=== PATIENT | female | born 1990 | race Caucasian/White ===

== ENCOUNTER 2016-07-22 09:55 | Emergency (ER) | payer OTHER ==
[~2016-07-22] VITALS: Ht 160 cm; Wt 73.8 kg
[~2016-07-22 09:55] MED LIST: CIPRO500 MG PO; FLEXERIL10 MG PO; NAPROSYN500 MG PO; NAPROXEN500 MG PO; SKELAXIN800 MG PO
[2016-07-22] MEDS ORDERED: NAPROSYN500 MG PO (12:01)
[2016-07-22] MEDS ORDERED: FLEXERIL10 MG PO (12:01)
[2016-07-22 12:19] VITALS: BP 138/92
== END 2016-07-22 12:19 | disposition home or self-care (01) ==
LOC: EME 09:55
DX: M62.838 Other muscle spasm (principal)
CPT/HCPCS: 99281; 99283

== ENCOUNTER 2016-09-22 20:12 | Emergency (ER) | payer OTHER ==
[~2016-09-22] VITALS: Ht 160 cm; Wt 71.0 kg
[2016-09-22 21:20] LABS: HEMATOCRIT 41.2 % (36.0-46.0); MCV 82.4 FL (83-99); MEAN PLAT.VOLUME 10.6 uM^3 (9.5-12.4); PLATELET COUNT 269 K/uL (156-360); RBC DIS.WIDTH-CV 11.6 % (11.8-14.6); RBC DIS.WIDTH-SD 34.5 % (39-53); WHITE BLOOD COUNT 15.9 K/uL (4.1-10.2)
[2016-09-22 21:28] LABS: CHLORIDE 104 mEq/L (99-109); POTASSIUM 3.8 mEq/L (3.7-5.4); SODIUM 138 mEq/L (136-147)
[2016-09-22 21:30] LABS: GLUCOSE 106 mg/dL (70-99)
[2016-09-22 21:32] LABS: ANION GAP 11 MEQ/L (2-14); TOTAL BILIRUBIN 0.5 mg/dL (0.0-1.0)
[2016-09-22 21:34] LABS: ALKALINE PHOSPHATASE 76 IU/L (3-129); GFR ESTIMATE (CALCULATED) > 59 mL/min/
[2016-09-22 21:35] LABS: UREA NITROGEN (BUN) 13 mg/dL (9-23)
[2016-09-22 21:44] LABS: QUANTITATIVE HCG < 4.0 MIU/ML
[2016-09-22 22:01] LABS: LIPASE 20 U/L (1.0-51.0)
[2016-09-22 22:52] LABS: ADD MIUA? YES; BILIRUBIN NEGATIVE; BLOOD NEGATIVE; COLOR YELLOW ((YELLOW)); GLUCOSE (STRIP) NEGATIVE; KETONES NEGATIVE; LEUKOCYTES TRACE; NITRITE NEGATIVE; PROTEIN (STRIP) NEGATIVE; SPECIFIC GRAVITY 1.015 (1.000-1.030); UROBILINOGEN 0.2 MG/DL (0.2-1.0)
[2016-09-22] MEDS ORDERED: FLOMAX0.4 MG PO (22:54)
[2016-09-22] MEDS ORDERED: ZOFRAN ODT4 MG PO (22:54)
[2016-09-22] MEDS ORDERED: PERCOCET 5/31 TABLET PO (22:54)
[2016-09-22 22:59] LABS: BACTERIA RARE /HPF; EPITHELIAL CELLS RARE /HPF; MUCUS TRACE /LPF; RED BLOOD CELLS 0-5 /HPF (0-5); UCUL ADDED? NO; WHITE BLOOD CELLS 0-5 /HPF (0-5)
[2016-09-22 23:27] VITALS: BP 120/75
== END 2016-09-22 23:28 | disposition home or self-care (01) ==
LOC: EME 20:12
DX: N20.0 Calculus of kidney (principal); R10.10 Upper abdominal pain, unspecified; R10.31 Right lower quadrant pain; R11.2 Nausea with vomiting, unspecified; K57.30 Diverticulosis of large intestine without perforation or abscess without bleeding
CPT/HCPCS: 74176; 80053; 81003; 83690; 84702; 85027; 99281; 99284

== ENCOUNTER 2017-10-15 10:45 | Emergency (ER) | payer SELFPAY ==
[~2017-10-15] VITALS: Ht 162.6 cm; Wt 75.6 kg
[~2017-10-15 10:45] MED LIST changes: +FLOMAX0.4 MG PO; +PERCOCET 5/31 TABLET PO; +ZOFRAN ODT4 MG PO
[2017-10-15 11:06] LABS: HEMATOCRIT 40.8 % (36.0-46.0); MCH 28.4 PG (29.0-34.0); MCHC 34.3 G/DL (30.0-36.0); MCV 82.8 FL (83-99); PLATELET COUNT 323 K/uL (156-360); RBC DIS.WIDTH-CV 12.2 % (11.8-14.6); RED BLOOD COUNT 4.93 M/uL (3.80-5.20); WHITE BLOOD COUNT 12.5 K/uL (4.1-10.2)
[2017-10-15 11:17] LABS: CHLORIDE 106 mEq/L (99-109); SODIUM 139 mEq/L (136-147)
[2017-10-15 11:18] LABS: GLUCOSE 139 mg/dL (70-99)
[2017-10-15 11:22] LABS: CREATININE 0.8 mg/dL (0.6-1.3); GFR ESTIMATE (CALCULATED) > 59 mL/min/
[2017-10-15 11:23] LABS: UREA NITROGEN (BUN) 11 mg/dL (9-23)
[2017-10-15 11:52] LABS: APPEARANCE CLOUDY ((CLEAR)); BILIRUBIN NEGATIVE; BLOOD LARGE; COLOR AMBER ((YELLOW)); GLUCOSE (STRIP) NEGATIVE; KETONES NEGATIVE; LEUKOCYTES NEGATIVE; NITRITE NEGATIVE; PROTEIN (STRIP) 100; SPECIFIC GRAVITY 1.019 (1.000-1.030); UROBILINOGEN 0.2 MG/DL (0.2-1.0)
[2017-10-15 12:13] LABS: RED BLOOD CELLS TNTC /HPF (0-5); WHITE BLOOD CELLS 0-5 /HPF (0-5)
[2017-10-15 12:14] LABS: EPITHELIAL CELLS 1+ /HPF; MUCUS 1+ /LPF
[2017-10-15 12:15] LABS: BACTERIA 1+ /HPF; UCUL ADDED? YES
[2017-10-15] MEDS ORDERED: PERCOCET 5/31 TABLET PO (12:53)
[2017-10-15] MEDS ORDERED: MOTRIN600 MG PO (12:53)
[2017-10-15] MEDS ORDERED: ZOFRAN ODT4 MG PO (12:53)
[2017-10-15 13:19] VITALS: BP 119/68
== END 2017-10-15 13:21 | disposition home or self-care (01) ==
LOC: EME 10:45
DX: N20.0 Calculus of kidney (principal)
CPT/HCPCS: 74176; 80048; 81003; 85027; 87086; 99281; 99284; J1885

== ENCOUNTER 2017-12-03 09:13 | Emergency (ER) | payer SELFPAY ==
[~2017-12-03] VITALS: Ht 160 cm; Wt 76.1 kg
[~2017-12-03 09:13] MED LIST changes: +MOTRIN600 MG PO
[2017-12-03] MEDS ORDERED: KEFLEX500 MG PO (11:16)
[2017-12-03 11:30] VITALS: BP 106/71
== END 2017-12-03 11:32 | disposition home or self-care (01) ==
LOC: EME 09:13
PROC: 3E0234Z Introduction of Serum, Toxoid and Vaccine into Muscle, Percutaneous Approach (ICD-10-PCS; principal; 2017-12-03)
DX: S91.012A Laceration without foreign body, left ankle, initial encounter (principal); W22.8XXA Striking against or struck by other objects, initial encounter; Y93.H9 Activity, other involving exterior property and land maintenance, building and construction; Y92.008 Other place in unspecified non-institutional (private) residence as the place of occurrence of the external cause; Z23 Encounter for immunization
CPT/HCPCS: 73610; 99281; 99284